=== PATIENT | female | born 1945 | race Caucasian/White ===

== ENCOUNTER 2021-10-08 18:23 | Emergency (ER) | payer MEDICARE, OTHER ==
[~2021-10-08] VITALS: Ht 165.1 cm; Wt 65.0 kg
[~2021-10-08 18:23] MED LIST: aspirin; diovan; metformin; nexium; simvastatin
[2021-10-08 20:35] LABS: BASOPHILS % (AUTO) 1.2 % (0.0-2.0); HEMATOCRIT 34.3 % (36-46); HEMOGLOBIN 11.7 g/dL (12.0-16.0); LYMPHOCYTES # (AUTO) 2.3 K/uL (1.0-4.8); LYMPHOCYTES % (AUTO) 27.7 % (22.0-44.0); MEAN CORPUSCULAR HEMOGLOBIN 30.3 pg (26.0-34.0); MEAN CORPUSCULAR HGB CONC 34.1 G/dL (31.0-37.0); MEAN CORPUSCULAR VOLUME 89 fL (80-100); MONOCYTES # (AUTO) 0.5 K/uL (0.1-1.0); MONOCYTES % (AUTO) 5.9 % (2.0-9.0); NEUTROPHILS # (AUTO) 5.3 K/uL (1.8-7.7); NEUTROPHILS % (AUTO) 64.2 % (40.0-70.0); PLATELET COUNT (AUTO) 270 K/uL (150-450); RED BLOOD CELL COUNT(AUTO) 3.86 MIL/uL (4.00-5.20); RED CELL DISTRIBUTION WIDTH 13.2 % (11.5-14.5)
[2021-10-08 21:23] LABS: CALCIUM, TOTAL 9.7 mg/dL (8.8-10.5); CREATININE 0.91 mg/dL (0.60-1.30); POTASSIUM 3.5 mmol/L (3.5-5.1)
[2021-10-08 22:40] LABS: APPEARANCE,URINE CLEAR (CLEAR); BILIRUBIN,URINE NEGATIVE (NEGATIVE); GLUCOSE, URINE (UA) NEGATIVE (NEGATIVE); KETONES,URINE NEGATIVE (NEGATIVE); LEUKOCYTE ESTERASE ,URINE TRACE (NEGATIVE); NITRATE,URINE NEGATIVE (NEGATIVE); OCCULT BLOOD,URINE NEGATIVE (NEGATIVE); PROTEIN,URINE NEGATIVE (NEGATIVE); UROBILINOGEN,URINE 0.2 mg/dL (<=1.0)
[2021-10-08 22:53] LABS: BACTERIA,URINE Few /HPF (None Seen); RBC,URINE 0-2 /HPF (0-2)
[2021-10-08 23:51] LABS: COVID AG,FIA SOURCE NASOPHARYNGEAL
[2021-10-09 02:06] VITALS: BP 104/55
[2021-10-09] MEDS ORDERED: SOLI10TA7 PO (02:15)
[2021-10-09] MEDS ORDERED: METO-391 PO (02:15)
[2021-10-09] MEDS ORDERED: MELO-106 PO (02:15)
[2021-10-09] MEDS ORDERED: SERT-439 PO (02:15)
[2021-10-09] MEDS ORDERED: PRAV40TA4 PO (02:15)
[2021-10-09] MEDS ORDERED: TRAZ-252 PO (02:15)
[2021-10-09 02:31] LABS: GLUCOSE,POINT OF CARE 108 MG/DL (70-110)
== END 2021-10-09 03:39 | disposition short-term general hospital (02) ==
LOC: EMS 18:35
DX: R55 Syncope and collapse (principal); R07.9 Chest pain, unspecified; E11.9 Type 2 diabetes mellitus without complications; E78.00 Pure hypercholesterolemia, unspecified; I10 Essential (primary) hypertension; Z90.710 Acquired absence of both cervix and uterus; Z20.822 Contact with and (suspected) exposure to COVID-19
CPT/HCPCS: 71046; 80048; 81001; 82962; 84484; 85025; 93005; 99285; 36415-L1; 36415-TC